=== PATIENT | male | born 1970 | race Hispanic/Latino ===

== ENCOUNTER → 2018-04-27 | Day surgery (SDC) | payer OTHER ==
[~2018-04-27] MED LIST: CEFAZOLIN SOD 2 GM/D5W 50ML 50 ML IV ONE; DESFLURANE 240 ML BTL INH ONE; DEXAMETHASONE SOD PHOS INJ 4 MG/ML VIAL ONE; EPINEPHRINE HCL INJ 1 MG/ML AMP ONE; FENTANYL CITRATE/PF 100MCG/2 ML INJ ONE; LIDOCAINE 2%/ EPINEPHRINE 20ML MDV ONE; LIDOCAINE HCL 2% LOCAL INJ 5 ML SDV VIAL INJ ONE; MIDAZOLAM HCL 2 MG/2 ML VIAL ONE; ONDANSETRON HCL INJ 2 MG/ML VIAL ONE; PROPOFOL IV EMULSION 10 MG/ML 20 ML VIAL ONE; ROCURONIUM BROMIDE 10 MG/ML 5ML VIAL ONE; ROPIVACAINE 0.5% 5 MG/ML 30 ML SDV ONE; SUDAFED; TYLENOL; ULTRAM50 MG PO
[2018-04-27 13:40] VITALS: BP 128/80
--- NOTE | 2018-04-28 18:01 | Operative Report ---
DATE OF PROCEDURE: April 27, 2018 PREOPERATIVE DIAGNOSIS: Right shoulder labral tear. POSTOPERATIVE DIAGNOSES 1. Right shoulder labral tear. 2. Right shoulder synovitis. 3. Right shoulder partial rotator cuff tear. PROCEDURES PERFORMED: The patient underwent a 1. Right shoulder examination under anesthesia. 2. Right shoulder arthroscopy. 3. Right shoulder arthroscopic debridement of synovitis. 4. Right shoulder arthroscopic debridement of a partial rotator cuff tear. 5. Right shoulder arthroscopic superior labral anterior-posterior repair. [employer]ER [employer]PORT MAINTENANCE: Lena Mcadams. ANESTHESIA: General endotracheal intubation anesthesia. INTRAVENOUS FLUIDS: As per the anesthesia record. OPERATIVE PROCEDURE IN DETAIL: Mr. Edmondson was taken to the operating room and placed in the supine position on the operating room table. Following induction of general anesthesia as well as endotracheal intubation, the patient's right upper extremity was examined under anesthesia. He was found to have full passive range of motion of the shoulder joint. There was no evidence of instability. The patient's upper extremity was prepped and draped in standard surgical fashion. Standard anterior and posterolateral arthroscopy portals were created without difficulty. The scope was placed within the shoulder joint atraumatically. Examination of the glenohumeral articulation demonstrated no significant glenohumeral wear. There were no loose bodies in the shoulder joint. Examination of the rotator cuff tissue demonstrated a partial thickness tear of the leading edge of the rotator cuff. The biceps was found to be contained within the shoulder joint. The biceps attachment, however, was displaced from the superior edge of the glenoid, and this included a labral tear from the 11 o'clock to 1 o'clock position. A shaver was placed through the anterior portal, and the insertion site for the labrum was debrided thoroughly. The partial thickness rotator cuff tear was also debrided at this time. A second anterolateral accessory portal was also created. Two suture anchors were inserted into the superior rim of the glenoid, and the sutures from the suture anchors were woven around the labrum and the labrum was tied firmly to the glenoid. A probe was then placed within the shoulder joint, and the biceps tendon and its glenoid attachment were firmly probed and it was found to have excellent adhesion to the bony surfaces. Anatomic baptism of the labrum had been achieved. The shoulder was then debrided of synovitis. The shoulder was then deflated of its sterile normal saline. The portal sites were closed in a single layer fashion. Sterile dressings were applied as well as a shoulder immobilizer. The patient was then awakened and taken to the postanesthesia care unit in stable condition. Lena Mcadams acted as the greenhouse assistant for this case and was necessary both the prepping and draping of the patient as well as the positioning of the arm and the passage of suture that allowed this case to be successful. Job#: [id number]
== END | disposition home or self-care (01) ==
LOC: OR 07:51
PROVIDERS: ATTEND Specialist
DX: S43.431A Superior glenoid labrum lesion of right shoulder, initial encounter (principal); M75.111 Incomplete rotator cuff tear or rupture of right shoulder, not specified as traumatic; M65.811 Other synovitis and tenosynovitis, right shoulder; X58.XXXA Exposure to other specified factors, initial encounter; Z01.810 Encounter for preprocedural cardiovascular examination
CPT/HCPCS: 29807; 93005; J0171; J0690; J2001; J2250; J2795; J1100; J2405

== ENCOUNTER 2018-08-11 15:55 | Outpatient (RCR) | payer BC, OTHER ==
[~2018-08-11 15:55] MED LIST changes: -CEFAZOLIN SOD 2 GM/D5W 50ML 50 ML IV ONE; -DESFLURANE 240 ML BTL INH ONE; -DEXAMETHASONE SOD PHOS INJ 4 MG/ML VIAL ONE; -EPINEPHRINE HCL INJ 1 MG/ML AMP ONE; -FENTANYL CITRATE/PF 100MCG/2 ML INJ ONE; -LIDOCAINE 2%/ EPINEPHRINE 20ML MDV ONE; -LIDOCAINE HCL 2% LOCAL INJ 5 ML SDV VIAL INJ ONE; -MIDAZOLAM HCL 2 MG/2 ML VIAL ONE; -ONDANSETRON HCL INJ 2 MG/ML VIAL ONE; -PROPOFOL IV EMULSION 10 MG/ML 20 ML VIAL ONE; -ROCURONIUM BROMIDE 10 MG/ML 5ML VIAL ONE; -ROPIVACAINE 0.5% 5 MG/ML 30 ML SDV ONE
== END 2018-08-28 ==
LOC: OT 15:55
PROVIDERS: ATTEND Specialist
DX: S46.002D Unspecified injury of muscle(s) and tendon(s) of the rotator cuff of left shoulder, subsequent encounter (principal); M25.512 Pain in left shoulder; M25.612 Stiffness of left shoulder, not elsewhere classified; R53.1 Weakness

== ENCOUNTER 2018-09-15 15:59 | Outpatient (RCR) | payer BC | END 2018-09-27 | LOC: OT 15:59 | PROVIDERS: ATTEND Specialist | DX: M25.511 Pain in right shoulder (principal); M75.101 Unspecified rotator cuff tear or rupture of right shoulder, not specified as traumatic | CPT/HCPCS: 97139 ==